=== PATIENT | female | born 1980 | race Hispanic/Latino ===

== ENCOUNTER 2017-01-31 06:37 | Inpatient (IN) | payer OTHER ==
[~2017-01-31] VITALS: Ht 167.6 cm; Wt 121.0 kg
[~2017-01-31 06:37] MED LIST: ATORVASTATIN CA10 MG PO; FISH OIL 1,0001 EAC7 PO; LORTAB 10-5001 EACH PO; MONONESSA1 EACH PO; PRAVASTATIN SOD10 MG PO; PRISTIQ100 MG PO; SERTRALINE HCL100 MG PO; SERTRALINE HCL50 MG PO; TRICOR145 MG PO; ZYRTEC10 M3 PO
[2017-01-31 07:16] VITALS: BP 1437/76
[2017-01-31 12:22] LABS: POINT-OF-CARE METER ID UU13113675
[2017-01-31 15:30] VITALS: BP 164/94
[2017-01-31 19:45] VITALS: BP 146/84
[2017-02-01 00:18] VITALS: BP 134/64
[2017-02-01 00:40] LABS: POINT-OF-CARE METER ID UU14162508
[2017-02-01 03:22] VITALS: BP 139/72
[2017-02-01 05:59] LABS: POINT-OF-CARE METER ID UU14162508
[2017-02-01 07:13] LABS: HEMATOCRIT 37.2 % (36.0-46.0); MCH 29.2 PG (29.0-34.0); MCHC 33.6 G/DL (30.0-36.0); MCV 86.9 FL (83-99); MEAN PLAT.VOLUME 9.6 uM^3 (9.5-12.4); PLATELET COUNT 312 K/uL (156-360); RBC DIS.WIDTH-CV 12.9 % (11.8-14.6); RBC DIS.WIDTH-SD 40.5 % (39-53); RED BLOOD COUNT 4.28 M/uL (3.80-5.20)
[2017-02-01 07:19] LABS: WHITE BLOOD COUNT 15.9 K/uL (4.1-10.2)
[2017-02-01 07:41] LABS: ANION GAP 9 MEQ/L (2-14); CHLORIDE 101 MEQ/L (99-109); GFR ESTIMATE (CALCULATED) > 59 mL/min/; GLUCOSE 102 mg/dL (70-99); MAGNESIUM 1.9 mg/dl (1.3-2.7); POTASSIUM 3.9 MEQ/L (3.7-5.4); SAMPLE HEMOLYSIS CHECK 0; SAMPLE ICTERIC CHECK 0; SAMPLE LIPEMIA CHECK 0; SODIUM 139 MEQ/L (136-147); UREA NITROGEN (BUN) 11 mg/dL (9-23)
[2017-02-01 08:05] VITALS: BP 108/57
[2017-02-01] MEDS ORDERED: HYDROCODON-ACE1 EAC7 PO (08:15)
[2017-02-01 12:13] LABS: POINT-OF-CARE METER ID UU14162508
[2017-02-01 14:05] LABS: INTERNAL CONTROL VALID? YES
== END 2017-02-01 16:26 | disposition home or self-care (01) | DRG 621 ==
LOC: 2SOUTH 06:37 → 2EAST 15:28
PROVIDERS: Anesthesiology; Surgery
PROC: 0DB64Z3 Excision of Stomach, Percutaneous Endoscopic Approach, Vertical (ICD-10-PCS; principal; 2017-01-31)
DX: E66.01 Morbid (severe) obesity due to excess calories (principal); E78.5 Hyperlipidemia, unspecified; Z68.42 Body mass index [BMI] 45.0-49.9, adult; G47.30 Sleep apnea, unspecified; E28.2 Polycystic ovarian syndrome; F41.9 Anxiety disorder, unspecified; F17.210 Nicotine dependence, cigarettes, uncomplicated
CPT/HCPCS: 80048; 82948; 83735; 84100; 84703; 85027; C9113; J0131; J0330; J0690; J1100; J1170; J1644; J1650; J1815; J2270; J2405; J2710; J2765; J3010; J3480; J7120; Q0169; S0020